=== PATIENT | female | born 1945 | race Caucasian/White ===

== ENCOUNTER 2017-03-31 22:08 | Emergency (ER) | payer OTHER, BC ==
[~2017-03-31] VITALS: Ht 165.1 cm; Wt 82.7 kg
[2017-03-31 22:14] VITALS: BP 156/129
== END 2017-04-01 00:27 | disposition home or self-care (01) ==
LOC: EME 22:08
DX: G25.81 Restless legs syndrome (principal); R11.2 Nausea with vomiting, unspecified; M54.2 Cervicalgia
CPT/HCPCS: 99281; 99283

== ENCOUNTER 2018-01-24 12:00 | Emergency (ER) | payer OTHER, BC ==
[~2018-01-24] VITALS: Ht 154.9 cm; Wt 81.1 kg
[~2018-01-24 12:00] MED LIST: DESYREL 150 MG150 MG PO; LEXAPRO5 MG PO; NEURONTIN300 MG PO; RED YEAST RICE600 M1 PO; REQUIP1 MG PO; VOLTAREN 1% GE100 GM TP; WELLBUTRIN75 MG PO
[2018-01-24 13:16] VITALS: BP 121/71
== END 2018-01-24 13:17 | disposition left against medical advice (07) ==
LOC: EME 12:00
DX: R42 Dizziness and giddiness (principal); G25.81 Restless legs syndrome; Z96.642 Presence of left artificial hip joint; Z88.8 Allergy status to other drugs, medicaments and biological substances
CPT/HCPCS: 80053; 81003; 85027; 93005; 99281; 99284; J7030